=== PATIENT | female | born 1990 | race Two or more races ===

== ENCOUNTER 2022-09-29 07:50 | Emergency (ER) | payer MEDICAID ==
[~2022-09-29] VITALS: Ht 167.6 cm; Wt 2.4 kg
--- NOTE | 2022-09-29 08:00 | NUR ---
RECEIVE PT 32 YRS FEMALE CAME FROM HOME WITH N/V AWAKE AND ALERT
--- NOTE | 2022-09-29 08:25 | NUR ---
SEEN BY DR. GARIBAY
[2022-09-29] MEDS ORDERED: IV NS 0.9% 1,000 ML IV ONE (08:30)
[2022-09-29] MEDS ORDERED: ONDANSETRON HCL/PF 4 MG/2 ML VIAL ONE (08:30)
[2022-09-29] MEDS ORDERED: ONDANSETRON 4 MG TAB.RAPDIS SL ONE (08:30)
--- NOTE | 2022-09-29 08:40 | NUR ---
BLOOD DROW BY LAB TACH
[2022-09-29 08:49] LABS: BASOPHILS % (AUTO) 0.2 % (0.0-2.0); EOSINOPHILS % (AUTO) 0.5 % (0.0-6.0); HEMATOCRIT 34 % (33-45); HEMOGLOBIN 11.3 g/dL (11.5-14.8); LYMPHOCYTES # (AUTO) 1.5 K/uL (0.8-4.8); LYMPHOCYTES % (AUTO) 36.4 % (20.0-44.0); MEAN CORPUSCULAR HGB CONC 34 g/dl (31.0-36.0); MEAN CORPUSCULAR VOLUME 87 fL (82-100); MONOCYTES # (AUTO) 0.3 K/uL (0.1-1.30); MONOCYTES % (AUTO) 8.4 % (2.0-12.0); NEUTROPHILS # (AUTO) 2.2 K/uL (1.8-8.9); NEUTROPHILS % (AUTO) 54.5 % (43.0-81.0); PLATELET COUNT (AUTO) 185 K/uL (150-450); RED BLOOD CELL COUNT(AUTO) 3.86 MIL/uL (4.0-5.2); WHITE BLOOD COUNT (AUTO) 4.1 K/uL (4.3-11.0)
[2022-09-29 09:13] LABS: ALBUMIN 3.1 g/dL (3.4-5.0); BILIRUBIN,TOTAL 0.2 mg/dL (0.2-1.0); CALCIUM, SERUM 8.5 mg/dL (8.5-10.1); CREATININE 0.7 mg/dL (0.6-1.3); POTASSIUM 3.8 mmol/L (3.5-5.1)
[2022-09-29] MEDS ORDERED: ONDA4TAB11 PO (09:35)
--- NOTE | 2022-09-29 10:07 | NUR ---
UA SENT TO LAB
--- NOTE | 2022-09-29 10:30 | NUR ---
PT REQUSTED PERGNANCY TEST TO PT DAPHNE FOR RESULT
--- NOTE | 2022-09-29 12:05 | NUR ---
WATING FOR RESULT
--- NOTE | 2022-09-29 13:05 | NUR ---
NO V.BLEEDING NO N/V TOLORATED PO INACK
--- NOTE | 2022-09-29 14:30 | NUR ---
BLOOD DROW BY LAB TACH AT BED SIDE
--- NOTE | 2022-09-29 15:48 | NUR ---
PER JOANNA FROM LAB, ANTIBODY SCREEN IN PROCESS AND WILL RESULT IN 25-30MINS; WILL CALL BACK IF PT IS A CANDIDATE FOR [facility]
--- NOTE | 2022-09-29 17:09 | NUR ---
DAPHNE WALLACE FROM LAB
--- NOTE | 2022-09-29 17:30 | NUR ---
[facility] READY FOR PICKUP PER LAB
[2022-09-29 18:36] VITALS: BP 112/62
--- NOTE | 2022-09-29 18:36 | NUR ---
[facility] GIVEN INDICATED; PRE-TRANSFUSION VS TAKEN AND RECORDED.
--- NOTE | 2022-09-29 18:36 | NUR ---
[facility]OG[facility] WAS GIVEN PT SIGN CONCENT FOR BLOOD TRANSFUTION FULLY UNDERSTOOD
[2022-09-29 18:51] VITALS: BP 126/75
[2022-09-29 19:06] VITALS: BP 127/71
--- NOTE | 2022-09-29 19:06 | NUR ---
NO REACTION PT TOLORATED PROCEDURE WILL
--- NOTE | 2022-09-29 19:15 | NUR ---
Patient discharged to home in stable condition. Written and verbal after care instructions given. Patient verbalizes understanding of instruction.
[2022-09-29 19:24] VITALS: BP 127/71
== END 2022-09-29 19:25 | disposition home or self-care (01) ==
LOC: ER 08:04
DX: O21.9 Vomiting of pregnancy, unspecified (principal); O26.899 Other specified pregnancy related conditions, unspecified trimester; R42 Dizziness and giddiness; Z59.00 Homelessness unspecified; Z3A.00 Weeks of gestation of pregnancy not specified
CPT/HCPCS: 99285; 96374; 96361; 85025; 83690; 36415; 80053; 84702; 96372; J2405; J7030; J2790